=== PATIENT | male | born 1935 | race Caucasian/White ===

== ENCOUNTER → 2017-01-09 | Day surgery (SDC) | payer MEDICARE, OTHER ==
[~2017-01-09] MED LIST: Lactated Ringers 1,000 ML IV SCH; Lactated Ringers 1,000 ML ONE; Lidocaine 1% 30 ML SDV INJECT ONE; Lidocaine 1% 30 ML SDV ONE; Propofol 200 MG/20 ML SDV IV ONE; ceFAZolin 1 GM Vial IVPUSH ONE
[2017-01-09 13:08] VITALS: BP 173/95
--- NOTE | 2017-01-10 07:08 | OR ---
DATE OF OPERATION: 01/09/2017 PREOPERATIVE DIAGNOSIS: LARGE SKIN LESION ON THE BASE OF THE NECK, RIGHT SIDE; AND LARGE SKIN LESION ON THE FACE, SIZE OF THE LESION OF THE FACE IS ABOUT 3 CM IN DIAMETER, AND THE SKIN LESION ON THE BASE OF THE NECK IS ABOUT 6 CM IN DIAMETER. PROCEDURE: EXCISION OF SKIN LESION ON THE FACE; AND SKIN LESION ON THE LEFT SIDE OF NECK AT THE BASE. ANESTHESIA: Xylocaine 1% and IV sedation by DRYWALL TAPER. DESCRIPTION OF PROCEDURE: After both those skin lesions were prepped with Betadine. The patient was given sterile drapes. The patient was given IV sedation by DRYWALL TAPER. Xylocaine 1% was infiltrated around both the lesions. Then skin incisions were marked out on both the lesions. First, the lesion on the face was excised out completely and taken as specimen. Then the skin had to be mobilized on both the sites and it was approximated after all the bleeding points were cauterized with 4-0 nylon interrupted sutures. Then, skin lesion at the base of the left side of the neck was also infiltrated with Xylocaine and it was completely excised out and taken as specimen leaving a large gap. All the bleeding points were cauterized. The skin was approximated with 4-0 nylon running suture. The patient was given sterile dressing. He tolerated the procedure well and left the operating room in satisfactory condition. CONNOR/ALEXANDRA /[id number]
== END ==
LOC: CC.SDS 10:05
PROVIDERS: ATTEND Surgery
DX: C44.319 Basal cell carcinoma of skin of other parts of face (principal); C44.42 Squamous cell carcinoma of skin of scalp and neck; I10 Essential (primary) hypertension; E78.5 Hyperlipidemia, unspecified; Z79.899 Other long term (current) drug therapy; Z98.890 Other specified postprocedural states; F17.210 Nicotine dependence, cigarettes, uncomplicated
CPT/HCPCS: 11646; J0690; J2704; J7120; 00300; 11626; 88305

== ENCOUNTER 2018-10-04 15:12 | Inpatient (IN) | payer MEDICARE, OTHER ==
[2018-10-04] MEDS ORDERED: Temazepam 15 MG Cap PO PRN (15:17)
[2018-10-04] MEDS ORDERED: Ondansetron 4 MG/2 ML SDV IV PRN (15:17)
[2018-10-04] MEDS ORDERED: Sodium Chloride 0.9% 10 ML Syringe FLUSH PRN (15:17)
[2018-10-04] MEDS ORDERED: Ondansetron 4 MG Tab.DIS PO PRN (15:17)
[2018-10-04] MEDS ORDERED: Enoxaparin 40 MG/0.4 ML Syringe SUBCUT SCH (17:00)
[2018-10-04] MEDS: Sodium Chloride 0.45% 1,000 ML IV SCH (19:05)
[2018-10-04] MEDS ORDERED: cefTRIAXone 1 GM Vial IVPUSH SCH (20:00)
[2018-10-04] MEDS ORDERED: Azithromycin 500 MG in Sodium Chloride 0.9% 250 ML IV SCH (21:00)
[2018-10-05] MEDS: Sodium Chloride 0.45% 1,000 ML IV SCH (03:48)
[2018-10-05] MEDS ORDERED: Iopamidol 612 MG/ML 100 ML Bottle IVPUSH ONE (07:41)
[2018-10-05 07:44] VITALS: BP 187/89
[2018-10-05] MEDS ORDERED: Fenofibrate 160 MG Tab PO SCH (08:00)
[2018-10-05] MEDS ORDERED: Simvastatin 40 MG Tab PO SCH (08:00)
[2018-10-05] MEDS ORDERED: amLODIPine 2.5 MG Tab PO SCH (08:00)
[2018-10-05] MEDS ORDERED: Metoprolol Succinate 100 MG Tab.ER PO SCH (08:00)
[2018-10-05] MEDS ORDERED: Allopurinol 300 MG Tab PO SCH (08:00)
[2018-10-05] MEDS ORDERED: Clopidogrel 75 MG Tab PO SCH (08:00)
--- NOTE | 2018-10-05 21:50 | PCM.DCSUM1 ---
Discharge Summary - Hospital Course Free Text/Narrative:: 82 year old gentleman admitted yesterday. Presented to clinic due to not feeling well. Had increased shortness of breath with exertion, right anterior chest and back pain. Stated had been having difficulty lying on his right side over the last month. Had noted he has lost weight and hasn't had much of an appetite. Chest xray and labs done on admit. Large pleural effusion noted on xray with questionable mass near the right hilum. Started on IV fluids, antibiotics with coverage due to mass being infiltrate. WBC however normal. Plan for CT scan of chest in am. Diagnosis: Stroke: No Modified V[place] Scale: No Symptoms at All Modified [place] Scale Score: 0 - Discharge Data Discharge Date: 10/05/18 Discharge Disposition: DC/Tfer to Acute Hospital 02 Condition: Good - Patient Summary/Data Complications: none Hospital Course: Patient admitted due to increased shortness of breath, atypical chest pain. Had been noting right chest wall and back pain, unable to lie on right side to sleep. 13# weight loss over the last few months. Decreased appetite. He has not had any hemoptysis, has chronic cough. Chest xray done on admit indicated pleural effusion, questionable mass to right hilar region. Labs noted normal WBC. Creatinine 1.7 which is at his norm. IV fluids given. Rocephin and Zithromax started due to concern of infiltrate versus mass. 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 Contact [facility] One call after CT report received. Spoke with Dr. Main about need for thoracentesis/biopsy and further work up. Patient and son informed of results. Agreed to accept transfer for further work up. - Patient Instructions Other/Special Instructions: Transfer to [facility] per BLS to Dr. Main - Discharge Plan *PRESCRIPTION DRUG MONITORING PROGRAM REVIEWED*: No *COPY OF PRESCRIPTION DRUG MONITORING REPORT IN PATIENT DARREN: No Home Medications: Home Meds Clopidogrel Bisulfate [Clopidogrel] 75 mg PO DAILY 09/21/14 [History] Fenofibrate Nanocrystallized [Fenofibrate] 145 mg PO DAILY 09/21/14 [History] Metoprolol Succinate [Toprol Xl] 100 mg PO DAILY 09/21/14 [History] Simvastatin 40 mg PO DAILY 09/21/14 [History] amLODIPine Besylate [Amlodipine Besylate] 5 mg PO DAILY 12/23/16 [History] Allopurinol [Zyloprim] 300 mg PO DAILY 10/04/18 [History] Oxygen Therapy Mode: Nasal Cannula - Discharge Summary/Plan Comment DC Time >30 min.: Yes Discharge Summary/Plan Comment: Discharge to [facility] to Dr. Main per BLS ambulance Time with consultation with [facility] 10 minutes Time with patient 15 minutes Time for documentation 10 minutes. - General Info Date of Service: 10/05/18 Admission Dx/Problem (Free Text: Atypical Chest Pain Shortness of breath Functional Status: Reports: Pain Controlled, Tolerating Diet, Ambulating - Review of Systems General: Reports: Weakness, Fatigue HEENT: Reports: Rhinitis. Denies: Sinus Congestion Pulmonary: Reports: Shortness of Breath, Cough. Denies: Hemoptysis Cardiovascular: Reports: Chest Pain. Denies: Edema, Lightheadedness Gastrointestinal: Reports: Decreased Appetite, Nausea. Denies: Abdominal Pain, Vomiting Genitourinary: Reports: No Symptoms Musculoskeletal: Reports: No Symptoms Skin: Reports: No Symptoms Neurological: Reports: No Symptoms - Patient Data Vitals - Most Recent: Last Vital Signs Temp 98.1 F 10/05/18 07:43 Pulse 91 10/05/18 08:19 Resp 18 10/05/18 07:43 BP 187/89 H 10/05/18 08:19 Pulse Ox 97 10/05/18 07:43 Weight - Most Recent: 180 lb 14.4 oz I&O - Last 24 hours: Intake & Output 10/05/18 10/05/18 10/05/18 06:59 14:59 22:59 Intake Total 1000 Balance 1000 Lab Results - Last 24 hrs: Laboratory Results - last 24 hr 10/05/18 Range/Units 07:00 Sodium 137 (136-145) mEq/L Potassium 4.9 (3.5-5.0) mEq/L Chloride 101 (98-106) mEq/L Carbon Dioxide 27 (21-32) mmol/L BUN 25 H (7-18) mg/dL Creatinine 1.5 H (0.7-1.3) mg/dL Est Cr Clr Drug Dosing 43.65 mL/min Estimated GFR (MDRD) 45 L (>=60) mL/min Glucose 92 (75-99) mg/dL Calcium 8.7 (8.4-10.1) mg/dL Med Orders - Current: Current Medications Discontinued Medications Allopurinol (Zyloprim) 300 mg PO DAILY [facility] Last Admin: 10/05/18 08:19 Dose: 300 mg Amlodipine Besylate (Norvasc) 5 mg PO DAILY [facility] Last Admin: 10/05/18 08:18 Dose: 5 mg Ceftriaxone Sodium (Rocephin) 1 gm IVPUSH Q24H [facility] Last Admin: 10/04/18 19:09 Dose: 1 gm Clopidogrel Bisulfate (Plavix) 75 mg PO DAILY [facility] Last Admin: 10/05/18 08:19 Dose: 75 mg Enoxaparin Sodium (Lovenox) 40 mg SUBCUT 1600 [facility] Last Admin: 10/04/18 17:38 Dose: 40 mg Fenofibrate (Fenofibrate) 160 mg PO DAILY [facility] Last Admin: 10/05/18 08:18 Dose: 160 mg Azithromycin 500 mg/ Sodium (Chloride) 250 mls @ 250 mls/hr IV Q24H [facility] Last Admin: 10/04/18 21:02 Dose: 250 mls/hr Sodium Chloride (Sodium Chloride 0.45%) 1,000 mls @ 125 mls/hr IV ASDIRECTED [facility] Last Admin: 10/05/18 03:48 Dose: 125 mls/hr Iopamidol (Isovue-300 (61%)) 100 ml IVPUSH ONETIME ONE Stop: 10/05/18 07:42 Last Admin: 10/05/18 08:08 Dose: 100 ml Metoprolol Succinate (Toprol Xl) 100 mg PO DAILY [facility] Last Admin: 10/05/18 08:19 Dose: 100 mg Ondansetron HCl (Zofran Odt) 4 mg PO Q4H PRN PRN Reason: nausea, able to take PO Ondansetron HCl (Zofran) 4 mg IV Q4H PRN PRN Reason: Nausea/Vomiting Simvastatin (Zocor) 40 mg PO DAILY [facility] Last Admin: 10/05/18 08:19 Dose: 40 mg Sodium Chloride (Saline Flush) 10 ml FLUSH ASDIRECTED PRN PRN Reason: Keep Vein Open Temazepam (Restoril) 15 mg PO BEDTIME PRN PRN Reason: Sleep - Exam General: Reports: Alert, Oriented HEENT: Reports: Mucous Membr. Moist/[place] Neck: Reports: Supple Lungs: Reports: Decreased Breath Sounds, Crackles Cardiovascular: Reports: Regular Rate, Regular Rhythm GI/Abdominal Exam: Normal Bowel Sounds, Soft, Non-Tender Extremities: Normal Inspection, No Pedal Edema Skin: Reports: Warm, Dry Neurological: Reports: No New Focal Deficit
== END 2018-10-05 11:15 | DRG 195 ==
LOC: UNDOADMIN 15:12 → CC.MS 15:12
PROVIDERS: ADMIT Physician Assistant Medical; ATTEND Family Medicine
DX: J18.9 Pneumonia, unspecified organism (principal); M54.9 Dorsalgia, unspecified; R06.02 Shortness of breath; R53.1 Weakness; F17.200 Nicotine dependence, unspecified, uncomplicated; N18.9 Chronic kidney disease, unspecified; E78.5 Hyperlipidemia, unspecified; I12.9 Hypertensive chronic kidney disease with stage 1 through stage 4 chronic kidney disease, or unspecified chronic kidney disease; R63.4 Abnormal weight loss; Z68.25 Body mass index [BMI] 25.0-25.9, adult; R07.89 Other chest pain; R22.2 Localized swelling, mass and lump, trunk; Z85.828 Personal history of other malignant neoplasm of skin; Z86.73 Personal history of transient ischemic attack (TIA), and cerebral infarction without residual deficits
CPT/HCPCS: 36415; 71046; 71260; 80048; 80053; 85025; 86140; A9270-GY; J0456; J0696; J1650; J7030; J7050; Q9967